=== PATIENT | male | born 2000 | race Hispanic/Latino ===

== ENCOUNTER 2024-12-18 14:01 | Emergency (ER) | payer SELFPAY ==
[~2024-12-18] VITALS: Ht 170.2 cm; Wt 72.0 kg
[2024-12-18] MEDS ORDERED: NITROGLYCERIN 0.4 MG SUBL SL PRN (14:15)
[2024-12-18] MEDS ORDERED: ASPIRIN 81 MG CHEW PO ONE (14:15)
[2024-12-18 14:31] LABS: BASOPHILS 0.9 % (0-2); EOSINOPHILS 1.3 % (0-6); HEMATOCRIT 40.3 % (35.0-50.0); HEMOGLOBIN 13.7 g/dL (12.0-18.0); LYMPHOCYTES 41.6 % (24-44); MCH 28.2 (27-36); MCHC 34.2 g/dl (30-36); MCV 82.7 fl (81-99); MONOCYTES 6.2 % (0-12); PLATELET COUNT 240 K/uL (140-440); RBC 4.87 M/ul (4.3-5.7); RDW 13.7 (10.5-15.0)
[2024-12-18 14:49] LABS: ALBUMIN 4.3 g/dL (3.4-5.0); ALBUMIN/GLOBULIN RATIO 1.39 (1.1-2.4); ANION GAP 9.2 (7-21); BILIRUBIN, TOTAL 0.2 mg/dL (0.2-1.0); BUN/CREATININE RATIO 7.84 (6.0-28.6); CALCIUM 8.9 mg/dL (8.5-10.1); CREATININE, SERUM 1.02 mg/dL (0.70-1.30); MAGNESIUM 1.9 mg/dL (1.8-2.4); POTASSIUM 4.2 mmol/L (3.5-5.1); PROTEIN, TOTAL 7.4 g/dL (6.4-8.2)
[2024-12-18 15:54] VITALS: BP 133/80
--- NOTE | 2024-12-19 10:38 | EKG ---
[facility] [address] [facility] [place], [place] [address] Signed Normal sinus rhythm with sinus arrhythmia Rightward axis Borderline ECG No previous ECGs available Confirmed by Wendy Aj DO ([id number]) on 12/19/2024 10:38:08 AM Electronically Signed By: WENDY AJ DO 12/19/24 1038 PATIENT NAME: ЕКАТЕРИНА FERGUSON Electrocardiogram DATE OF : [birth year] PHYSICIAN: WENDY AJ DO REPORT #: [id number] REPORT IS CONFIDENTIAL AND NOT TO BE RELEASED WITHOUT AUTHORIZATION
== END 2024-12-18 15:55 | disposition home or self-care (01) ==
LOC: ED 14:01
PROVIDERS: Emergency Medicine
DX: R07.81 Pleurodynia (principal)
CPT/HCPCS: 36415; 71045; 80053; 83735; 84484; 85025; 93005; 93010; 99285-25